=== PATIENT | female | born 1940 | race Caucasian/White ===

== ENCOUNTER 2021-06-30 17:25 | Emergency (ER) | payer OTHER, MEDICARE ==
[2021-06-30] MEDS ORDERED: DIPHTH,PERTUSS(ACELL),TET 0.5 ML DISP.SYRIN IM ONE ×2 (17:43→18:04)
[2021-06-30 17:59] VITALS: TEMP 97.8; BMI 18.1
[2021-06-30] MEDS ORDERED: ACETAMINOPHEN 325 MG TABLET (FP) PO ONE (18:12)
[2021-06-30] MEDS ORDERED: ACETAMINOPHEN 325 MG TABLET (FP) ONE (18:13)
[2021-06-30 21:00] VITALS: BP 150/90; PULSE 79
== END 2021-06-30 21:02 | disposition home or self-care (01) ==
LOC: FER 17:25
PROC: 3E0234Z Introduction of Serum, Toxoid and Vaccine into Muscle, Percutaneous Approach (ICD-10-PCS; principal; 2021-06-30)
DX: S01.112A Laceration without foreign body of left eyelid and periocular area, initial encounter (principal); W19.XXXA Unspecified fall, initial encounter
CPT/HCPCS: 70450-TC; 70486-TC; 90471; 90715; 99284-25